=== PATIENT | male | born 1975 | race Caucasian/White ===

== ENCOUNTER 2025-08-31 10:43 | Day surgery (SDC) | payer OTHER, SELFPAY ==
--- NOTE | 2025-08-30 14:02 | H&P.OPEN ---
HPI - General General Date of Service: 08/31/25 HPI Narrative SHIREEN QUEZADA, is a 50 M who presents for screening colonoscopy. Patient never had previous colonoscopy. Patient denies any chronic abdominal pain/nausea/vomiting/reflux. Patient has bowel movements daily denies any blood. Patient denies any family history of colon cancer. PFSH Medical History Anxiety Alcohol use Non-smoker Home Medications ?Medication ?Instructions ?Recorded ?Last Taken ?Type citalopram 20 mg tablet 20 mg PO DAILY 08/30/25 08/30/25 History Allergy/AdvReac Type Severity Reaction Status Date / Time No Known Allergies Allergy Verified 08/31/25 11:18 Social History Smoking Status: Never smoker Past Medical/Surgical History Planned Operation Planned Operative Procedure(s): COLONOSCOPY Previous Hospitalizations/Surgeries HX Hospitalizations: No Any Problems With Anesthesia: No You/Your Family Experience Fever (Hyperthermia) With Anes: No Cholinesterase deficiency: No Cardiovascular Hx Hypertension: No Respiratory Hx Sleep Apnea: No Hx Respiratory Tract Infection/Cold (presently): No Do You Snore Loudly (louder than talking or can be heard): No Do You Often Feel Tired/ Fatigued/ Sleepy Dring Daytime?: No Has Anyone Observed You Stop Breathing During Sleep?: No Result (for STOP score): Negative Smoking Status: Never smoker Neurological Does patient have nerve stimulator: No Allergies No Known Allergies Allergy (Verified 08/31/25 11:18) Discharge Who Could Help: TESSY After D/C, Where Do you Plan to Go: Return Home Physical Exam Const alert, oriented x3 and no apparent distress HEENT normocephalic and head/scalp atraumatic Resp normal respiratory effort Cardio regular rate GI soft to palpation and non-tender; Negative for non-distended Palpation: Negative for guarding Extremity no clubbing, cyanosis or edema Skin no rashes or lesions noted Neuro CN's II-XII intact bilaterally Psych mental status grossly normal Assessment & Plan Assessment/Plan (1) Screening for colon cancer: Surgery Risks - Colonoscopy I discussed with the patient the risks of the procedure: Yes Risks Include but are not Limited To: Risks include but are not limited to: Bleeding, perforation requiring further surgery, inability to complete colonoscopy requiring barium enema.
[2025-08-31] VITALS (7 sets, daily range): BP systolic 104–126; BP diastolic 70–79; PULSE 63–70; RESP 16; TEMP 36.1–36.6; O2SAT 95–100; BMI 23.1
[2025-08-31] MEDS: Lactated Ringers 1,000 ML 15 ML IV (11:04)
--- NOTE | 2025-08-31 11:26 | PRE.ANES_ITS ---
ASA Classification* ASA Classification ASA Classification: 2 Assessment & Plan Anesthesia* Anesthesia Assessment Anesthesia Assessment: Discussed sedation and/or anesthesia options, risks, benefits, and alternatives with patient/parents/legal guardian/POA. Questions invited. The patient/parents/legal guardian/POA seems to understand and agrees to proceed with anesthesia plan. Reviewed the physical assessment, medical history, allergy history and patient home medications list prior to surgery/procedure/anesthetic and documented any changes. Performed airway and anesthesia risk assessments. 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 When Was Last Pacemaker Check QUESTION #4 FULL TEXT: You/Your Family Experience fever (hyperthermia) with Anesthesia Last Oral Intake Last Oral intake: Last Oral Intake NPO since 06:00 08/31/25 10:59 Meds taken in AM with sips of No 08/31/25 10:59 water? Meds patient instructed to take am of surgery PONV PONV - cardiothoracic anesthesia technician: PONV - cardiothoracic anesthesia technician Female No 08/30/25 10:38 HX of Motion Sickness No 08/30/25 10:38 HX of N/V After Surgery No 08/30/25 10:38 Non-Smoker Yes 08/30/25 10:38 Duration of Surgery greater No 08/30/25 10:38 than 60 minutes Number of Risk Factors 1 08/30/25 10:38 PONV Score Low Risk 08/30/25 10:38 Height & Weight Height & Weight: Anesthesia: Height & Weight Height 5 ft 10 in 08/31/25 10:59 Weight: 73 kg 08/31/25 10:59 Body Mass Index (BMI) 23.1 08/31/25 10:59 Respiratory Assessment Respiratory Assessment - cardiothoracic anesthesia technician: Respiratory Tract Infection Hx - cardiothoracic anesthesia technician Hx Respiratory Tract Infection No 08/30/25 14:03 STOP Sleep Apnea STOP Sleep Apnea - cardiothoracic anesthesia technician: STOP Sleep Apnea - cardiothoracic anesthesia technician Hx Hypertension No 08/30/25 14:03 Hx Sleep Apnea No 08/30/25 14:03 CPAP BIPAP Do you snore loudly (louder No 08/30/25 14:03 than talking or can be heard Do you often feel tired/ No 08/30/25 14:03 fatigued/ sleepy during daytime? Has anyone observed you stop No 08/30/25 14:03 breathing during sleep? STOP Results Negative 08/30/25 14:03 QUESTION #5 FULL TEXT : Do you snore loudly (louder than talking or can be heard through closed doors)? 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 Specify any problems Hx of Preganancy in last 3 N/A 08/30/25 10:38 Months Nurse Filling Out Transfusion [id number] 08/30/25 10:38 & Questions: Date: 08/30/25 08/30/25 10:38 Time: 10:40 08/30/25 10:38 Patient unable to answer at this time (ie. confused, unrespo /Reproduction History /Reproductive History - cardiothoracic anesthesia technician: /Reproductive Hx- cardiothoracic anesthesia technician Hx Now Gestational Age (in weeks): EDC: Hx Hx Para Hx Section SAB Does the father of the baby or his family experience fever w Father of the baby Malignant Hypertension history comment Active Medications Active Medications: Current Medications Generic Name Dose Route Start Last Admin Trade Name Freq PRN Reason Stop Dose Admin Lactated Ringer's 1,000 mls @ 15 mls/hr 08/31/25 11:00 08/31/25 11:04 IV 15 mls/hr .Q48H SKYLER Administration PFSH Medical History Anxiety Alcohol use Non-smoker Home Medications ?Medication ?Instructions ?Recorded ?Last Taken ?Type citalopram 20 mg tablet 20 mg PO DAILY 08/30/25 1206/16 History Allergy/AdvReac Type Severity Reaction Status Date / Time No Known Allergies Allergy Verified 08/31/25 11:18 Social History Smoking Status: Never smoker Addt'l Information Additional Findings: >4 Mets Review of Systems (Anesthesia) ROS Narrative System reviewed and no additional complaints, except as documented. Physical Exam Const alert and oriented x3 Orientation / Consciousness: awake HEENT dentition normal Neck full ROM Resp normal respiratory effort and normal air movement Cardio regular rate and regular rhythm Back/Spine normal ROM Neuro oriented x3 and moves all extremities
--- NOTE | 2025-08-31 12:00 | COLBX_PTH ---
PATIENT: SHIREEN ROSS LOC: EN U#:[id number] AGE/SX: 50/M ROOM: RE08/31/[address]: Dr. Pau Crandall MD : 1975 BED: DIS: 08/31/2025 SPEC #: [id number] RECD: 08/31/25 13:49 STATUS: JUAN REQ #: [id number] RHONDA: 08/31/25 12:[address]: Pau Crandall DEPT: SURGICAL PATHOLOGY RECD BY: Tex Cruz ENTERED: 08/31/25 14:13 SP TYPE: COLON BX OTHR DR: Dr. Kelly Ross MD Tissues: A - Cecum, NOS Procedures: Surgery Specimen Level IV HEADER OPERATION: Colonoscopy with polypectomy PRE-OP DIAGNOSIS: Screening for colon cancer TISSUE SUBMITTED: A- Cecum polyp MICROSCOPIC DIAGNOSIS A. Colon, cecum, polyp, polypectomy: - Tubular adenoma. MICROSCOPIC DESCRIPTION Slides are reviewed. GROSS DESCRIPTION A. Received in fixative is one container labeled with the patient's name and designated Cecum polyp. The specimen consists of multiple irregular fragments of moreno tissue that in aggregate measure 1.1 x 0.4 x 0.1 cm. The specimen is totally submitted in one cassette. DC 08/31/2025 CPT:15087
--- NOTE | 2025-08-31 13:40 | OP.COLON_ITS ---
Patient Name: Maicol Ross Procedure Date: 08/31/2025 1:09 PM Date of : 1975 Age: 50 Procedure: Colonoscopy Indications: Screening for colorectal malignant neoplasm Providers: Pau Crandall MD Referring MD: Kelly Ross Medicines: Monitored Anesthesia Care Patient Profile: This is a 50 year old male. Last Colonoscopy: none. The patient's first colonoscopy is today. Complications: No immediate complications. Procedure: Pre-Anesthesia Assessment: - Prior to the procedure, a History and Physical was performed, and patient medications and allergies were reviewed. The patient's tolerance of previous anesthesia was also reviewed. The risks and benefits of the procedure and the sedation options and risks were discussed with the patient. All questions were answered, and informed consent was obtained. Prior Anticoagulants: The patient has taken no anticoagulant or antiplatelet agents. ASA Grade Assessment: Per anesthesia. After reviewing the risks and benefits, the patient was deemed in satisfactory condition to undergo the procedure. After I obtained informed consent, the scope was passed under direct vision. Throughout the procedure, the patient's blood pressure, pulse, and oxygen saturations were monitored continuously. The Colonoscope was introduced through the anus and advanced to the cecum, identified by the appendiceal orifice, ileocecal valve and palpation. The colonoscopy was performed without difficulty. The patient tolerated the procedure well. The quality of the bowel preparation was good. Scope In: 1:17:04 PM Scope Withdrawal Time 0 hours 11 minutes 46 seconds Scope Out: 1:35:43 PM Total Procedure Duration Time 0 hours 18 minutes 39 seconds Findings: Hemorrhoids were found on perianal exam. Non-bleeding external and internal hemorrhoids were found. The hemorrhoids were small and Grade I (internal hemorrhoids that do not prolapse). A 4 mm polyp was found in the cecum. The polyp was semi-pedunculated. The polyp was removed with a hot snare. Resection and retrieval were complete. The exam was otherwise without abnormality. Impression: - Hemorrhoids found on perianal exam. - Non-bleeding external and internal hemorrhoids. - One 4 mm polyp in the cecum, removed with a hot snare. Resected and retrieved. - The examination was otherwise normal. Recommendation: - Discharge patient to home. - Resume previous diet. - Continue present medications. - Await pathology results. - Repeat colonoscopy in 5 years for surveillance based on pathology results. Procedure Code(s): --- Professional --- 18635, PT, Colonoscopy, flexible; with removal of tumor(s), polyp(s), or other lesion(s) by snare technique Diagnosis Code(s): --- Professional --- Z12.11, Encounter for screening for malignant neoplasm of colon K64.0, First degree hemorrhoids D12.0, Benign neoplasm of cecum CPT copyright 2021 [employer]. All rights reserved. The codes documented in this report are preliminary and upon legal recovery specialist review may be revised to meet current compliance requirements. MD Pau Lund MD 08/31/2025 1:40:04 PM This report has been signed electronically. Number of Addenda: 0 Note Initiated On: 08/31/2025 1:09 PM
--- NOTE | 2025-08-31 13:40 | OP.PROVAT_ITS ---
08/31/2025 Kelly Ross [place] [id number] [address] Re : Colonoscopy procedure for Maicol Cody Dear Dr. Ross This procedure was performed on Sunday, August 31, 2025. My impressions and recommendations are as follows: Impressions : - Hemorrhoids found on perianal exam. - Non-bleeding external and internal hemorrhoids. - One 4 mm polyp in the cecum, removed with a hot snare. Resected and retrieved. - The examination was otherwise normal. Recommendations : - Discharge patient to home. - Resume previous diet. - Continue present medications. - Await pathology results. - Repeat colonoscopy in 5 years for surveillance based on pathology results. My findings are described in the full procedure note, which is enclosed. If I can be of further assistance, please feel free to contact me at Doctor phone number(s): , Work: . Sincerely, MD Pau Lund MD 08/31/2025 1:40:04 PM This report has been signed electronically.
--- NOTE | 2025-08-31 13:44 | PCM.POST.ANE ---
Anesthesia: Postop Eval I Current Vital Signs Temperature: 97.1 F Pulse Rate: 67 Blood Pressure: 107/70 Respiratory Rate: 16 Pulse Ox: 99 Oxygen Delivery Method: Room Air Assessment Airway patent: Yes Spontaneous unlabored respirations: Yes Mental status: Awake and Calm nausea: No Vomiting: No Anesthesia Complication: No Fluid Hydration Crystalloid volume administer (ml): 600 Total IV fluid infused: 600 Progress Note Anesthesia document: Postop Eval 1 completed: Yes
--- NOTE | 2025-08-31 14:27 | PCM.POSTANE2 ---
Anesthesia Postop Eval I Sum Postop Eval Completion status Anesthesia document: Postop Eval 1 completed: Yes Anesthesia Postop Eval I Summary Anesthesia Postop Eval I Summary: Anesthesia Postop Eval I: Assessment Summary Airway patent Yes 08/31/25 13:45 [email or web address] Spontaneous unlabored Yes 08/31/25 13:45 [email or web address] respirations Mental status Awake,Calm 08/31/25 13:45 [email or web address] nausea No 08/31/25 13:45 [email or web address] Vomiting No 08/31/25 13:45 [email or web address] Anesthesia Postop Eval I: Fluid Summary Crystalloid volume administer 600 08/31/25 13:45 [email or web address] (ml) Colloids volume administered ( ml) Blood Product volume administered (ml) Total IV fluid infused 600 08/31/25 13:45 [email or web address] Anesthesia Postop Eval I: Summary Notes Anesthesia Complication No 08/31/25 13:45 [email or web address] Anesthesia Complication Comment: Post-operative progress note Anesthesia: Postop Eval II Evaluation Mental status: Awake and Calm Pain Level: 0 nausea: No Vomiting: No Complications Anesthesia Complication: No
== END 2025-08-31 14:26 | disposition home or self-care (01) ==
LOC: EN 10:55 → AC 10:56
PROVIDERS: PCP Family Medicine; Referring Provider Family Medicine; Visit Provider Surgery
PROC: 0DJD8ZZ Inspection of Lower Intestinal Tract, Via Natural or Artificial Opening Endoscopic (ICD-10-PCS; CPT 45378; principal; 2025-08-31 11:55)
DX: Z12.11 Encounter for screening for malignant neoplasm of colon (principal); D12.0 Benign neoplasm of cecum; K64.4 Residual hemorrhoidal skin tags; K64.0 First degree hemorrhoids; F41.9 Anxiety disorder, unspecified; Z79.899 Other long term (current) drug therapy
CPT/HCPCS: 45385; 88305; J2405

== ENCOUNTER → 2025-09-16 | Outpatient (CLI) | payer OTHER, SELFPAY ==
--- OUTSIDE RECORDS SUMMARY | 2025-09-16 08:11 | XMS RPT_ITS | CCD ---
Author Organization [facility] CUSTOMER CARE AGENT [facility] Care Team Providers Care Inspector Subassemblies Name Role Phone Pau Crandall Attending Unavailable Kelly Ross Primary Care Unavailable Encounters Encounter Date Encounter Type Care Provider Facility Start: 08-31-2025 ambulatory [facility] Payers Date Payer Category Payer Private Health Insurance [id number] 2025 Self-pay Unknown [id number] Summary Purpose Family History No Family History Records Found Advance Directives No Advanced Directives Records Found Additional Source Comments (unrecognized sect ion and content) No Status Records Found INFORMATION SOURCE (unrecogn ized section and content) DATE CREATED AUTHOR 08/02/2025 [facility] FOR RECORDS PERTAINING TO PATIENTS WHO ARE OR HAVE BEEN ENROLLED IN A CHEMICAL DEPENDENCY/SUBSTANCEABUSE PROGRAM, SOME INFORMATION MAY BE OMITTED. This clinical summary was aggregated from multiple sources. Caution should be exercised in using it in the provision of clinical care. This summary normalizes information from multiple sources, and as a consequence, information in this document may materially change the coding, format and clinical context of patient data. In addition, data may be omitted in some cases. CLINICAL DECISIONS SHOULD BE BASED ON THE PRIMARY CLINICAL RECORDS. [facility] [employer] [facility]. provides no warranty or guarantee of the accuracy or completeness of information in this document.
[2025-09-16 10:38] LABS: Cholesterol 245 mg/dL (<=200); Low Density Lipoprotein Calc. 175 mg/dL; Triglycerides 74 mg/dL; Very Low Density Lipoprotein 15 mg/dL (5-40); cholesterol:hdl ratio screen 4.29
== END | disposition home or self-care (01) ==
LOC: MTLAB 08:00
PROVIDERS: PCP Family Medicine; Referring Provider Family Medicine; Visit Provider Family Medicine
DX: E78.5 Hyperlipidemia, unspecified (principal); R53.83 Other fatigue
CPT/HCPCS: 36415; 80061; 84443